=== PATIENT | male | born 1985 | race African-American/Black ===

== ENCOUNTER 2016-08-18 23:54 | Emergency (ER) | payer SELFPAY ==
[~2016-08-18] VITALS: Ht 175.3 cm; Wt 136.0 kg
[2016-08-19 00:02] VITALS: BP 169/81
== END 2016-08-19 03:55 | disposition left against medical advice (07) ==
LOC: ER 08-19 03:54
DX: M79.603 Pain in arm, unspecified (principal); M79.643 Pain in unspecified hand; Z53.21 Procedure and treatment not carried out due to patient leaving prior to being seen by health care provider